=== PATIENT | female | born 2000 | race Caucasian/White ===

== ENCOUNTER 2022-05-04 09:36 | Emergency (ER) | payer OTHER ==
--- NOTE | 2022-05-04 10:33 | ERPHSYRPT ---
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 I got some pains in my chest in the middle and this morning it got worse and I got some weird sensation down my left arm and left breast. I also have had white discharge as well and I think I have a yeast infection." Triage Nursing Assessment: Pt presents to ER with complaints of mid to left sided chest pains since last night and worsening this morning, states tingling sensation down left arm. Admits to having a lot of stressors lately. Pt states has had some shortness of breath. Respirations are easy at this time. Skin is pink, warm, and dry. Pt rates chest pain 6/10 scale, states pains are heavy and intermittently sharp. Pt states she has nausea but denies vomiting or diarrhea. Pt complains of white discharge and believes she has a yeast infection as well. Physician History: Patient a 21-year-old female presents emergency department for evaluation of chest pain. Patient experienced symptoms yesterday. 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 Grandmother reportedly has advanced dementia. Patient interactions with grandmother is physical in terms of lifting and transferring. Patient's left- sided chest pain is reproducible with movement and palpation. Pain improved with rest. No associated nausea vomiting or diaphoresis. No diarrhea. No rash. No history of cardiovascular disease. BMI 60. Symptoms are mild to moderate in intensity. Patient voices no other complaints or concerns at this time. Portions of this note were created with voice recognition technology. There may be grammatical, spelling, punctuation or sound alike errors Timing/Duration: yesterday Activities at Onset: other (Patient lives in transfers her grandmother who has advanced dementia) Quality: aching Location: other (Left chest) Chest Pain Radiation: no radiation Severity of Pain-Max: moderate Severity of Pain-Current: mild Modifying Factors: Improves With: other (Palpation to chest reproduces symptoms.) Associated Symptoms: denies symptoms Prior Chest Pain/Cardiac Workup: no prior chest pain Nitro Today/Relief: no nitro taken today Aspirin Treatment Today: no aspirin today Allergies/Adverse Reactions: calamine Allergy (Mild, Verified 05/04/22 09:50) Rash famotidine Adverse Reaction (Verified 05/04/22 09:50) Home Medications: Sertraline HCl 50 mg [Zoloft 50 mg Tablet] 150 mg PO DAILY 05/04/22 [History] Hx Tetanus, Diphtheria Vaccination/Date Given: No Hx Influenza Vaccination/Date Given: No Hx Pneumococcal Vaccination/Date Given: No Immunizations Up to Date: Yes Travel Risk - International Travel Have you traveled outside of the country in past 3 weeks: No - Coronavirus Screening Are you exhibiting any of the following symptoms?: No Close contact with a COVID-19 positive Pt in past 14-21 Days: No - Vaccine Status Have you recieved a Covid-19 vaccination: No - Review of Systems Constitutional: No Symptoms, No Fever, No Chills Eyes: No Symptoms Ears, Nose, & Throat: No Symptoms Respiratory: No Symptoms, No Cough, No Dyspnea Cardiac: No Symptoms, No Chest Pain, No Edema, No Syncope Abdominal/Gastrointestinal: No Symptoms, No Abdominal Pain, No Nausea, No Vomiting, No Diarrhea Genitourinary Symptoms: No Symptoms, No Dysuria Musculoskeletal: No Symptoms, No Back Pain, No Neck Pain Skin: No Symptoms, No Rash Neurological: No Symptoms, No Dizziness, No Focal Weakness, No Sensory Changes Psychological: No Symptoms Endocrine: No Symptoms Hematologic/Lymphatic: No Symptoms Immunological/Allergic: No Symptoms All Other Systems: Reviewed and Negative - Past Medical History Pertinent Past Medical History: Yes GI Medical History: Irritable Bowel Psycho-Social History: Anxiety, Depression Female Reproductive Disorders: Other Other Medical History: PCOS - Past Surgical History Past Surgical History: Yes Other Surgical History: wisdom teeth - Social History Smoking Status: Current every day smoker Exposure to second hand smoke: No Drug Use: none Patient Lives Alone: No - Female History Hx Last Menstrual Period: unknown on control Hx Now: No - Nursing Vital Signs Nursing Vital Signs: Initial Vital Signs Pulse Rate 106 H 05/04/22 09:37 Respiratory Rate 22 05/04/22 09:37 Blood Pressure 145/92 05/04/22 09:37 O2 Sat by Pulse Oximetry 98 05/04/22 09:37 Pain Scale Pain Intensity 4 - Physical Exam General Appearance: no apparent distress, alert, obese Eye Exam: PERRL/EOMI, eyes nml inspection Ears, Nose, Throat Exam: normal ENT inspection, moist mucous membranes Neck Exam: normal inspection, non-tender, supple, full range of motion Respiratory Exam: normal breath sounds, lungs clear, other (Chest wall tenderness. Palpation to anterior chest wall reproduces symptoms. Tenderness more so on the left than the right.), No respiratory distress Cardiovascular Exam: regular rate/rhythm, normal heart sounds Gastrointestinal/Abdomen Exam: soft, No tenderness, No mass Back Exam: normal inspection, No CVA tenderness, No vertebral tenderness Extremity Exam: normal inspection, normal range of motion Neurologic Exam: alert, oriented x 3, cooperative, normal mood/affect, sensation nml, No motor deficits Skin Exam: normal color, warm, dry Lymphatic Exam: No adenopathy SpO2 Interpretation: normal SpO2: 98 O2 Delivery: Room Air - Course Nursing assessment & vital signs reviewed: Yes EKG Interpreted by Me: RATE ([id number]), Sinus Tach, NORMAL AXIS, NORMAL INTERVALS - Radiology Exams Chest X-ray Interpretation: Teleradiologist Report (Normal heart lungs and bony thorax) Ordered Tests: Active Orders 24 hr Category Date Time Status [employer] STAT Care 05/04/22 10:14 Active EKG-ER Only STAT Care 05/04/22 10:13 Active IV Insertion STAT Care 05/04/22 11:42 Active Pulse Oximetry (ED) STAT Care 05/04/22 10:13 Active CHEST 1 VIEW (PORTABLE) Stat Exams 05/04/22 11:28 Completed CBC W DIFF Stat Lab 05/04/22 10:10 Completed CMP Stat Lab 05/04/22 10:10 Completed D-DIMER QUANTITATIVE Stat Lab 05/04/22 10:10 Completed NT PRO BNP Stat Lab 05/04/22 10:10 Completed TROPONIN Q4H Lab 05/04/22 10:10 Completed TROPONIN Q4H Lab 05/04/22 11:40 Received TROPONIN Q4H Lab 05/04/22 18:15 Ordered Lab/Rad Data: Laboratory Result Diagrams 05/04/22 10:10 05/04/22 10:10 Laboratory Results 05/04/22 05/04/22 05/04/22 Range/Units 10:10 10:10 10:10 WBC (4.0-10.5) x10^3/uL RBC (4.1-5.4) x10^6/uL Hgb (12.0-16.0) g/dL Hct (35-47) % MCV (78-100) fL MCH (26-32) pg MCHC (32-36) g/dL RDW (11.5-14.0) % Plt Count (150-450) x10^3/uL MPV (7.5-11.0) fL Gran % (36.0-66.0) % Immature Gran % (Auto) (0.00-0.4) % Nucleat RBC Rel Count (0.00-0.1) % Eos # (Auto) (0-0.5) x10^3/uL Immature Gran # (Auto) (0.00-0.03) x10^3u/L Absolute Lymphs (auto) (1.0-4.6) x10^3/uL Absolute Monos (auto) (0.0-1.3) x10^3/uL Absolute Nucleated RBC (0.00-0.01) x10^3u/L Lymphocytes % (24.0-44.0) % Monocytes % (0.0-12.0) % Eosinophils % (0.00-5.0) % Basophils % (0.0-0.4) % Absolute Granulocytes (1.4-6.9) x10^3/uL Basophils # (0-0.4) x10^3/uL D-Dimer 0.22 (0.0-0.50) mg/L Sodium 139 (137-145) mmol/L Potassium 4.2 (3.5-5.1) mmol/L Chloride 109 H (98-107) mmol/L Carbon Dioxide 21 L (22-30) mmol/L Anion Gap 13.3 (5-15) MEQ/L BUN 13 (7-17) mg/dL Creatinine 0.50 L (0.52-1.04) mg/dL Estimated GFR > 60.0 ML/MIN Glucose 131 H (74-106) mg/dL Calcium 9.0 (8.4-10.2) mg/dL Total Bilirubin 0.40 (0.2-1.3) mg/dL AST 21 (14-36) U/L ALT 24 (0-35) U/L Alkaline Phosphatase 86 (38-126) U/L Troponin I < 0.012 (0.000-0.034) ng/mL NT-Pro-B Natriuret Pep 14.0 (0-450) pg/mL Serum Total Protein 7.9 (6.3-8.2) g/dL Albumin 4.1 (3.5-5.0) g/dL 05/04/22 Range/Units 10:10 WBC 12.5 H (4.0-10.5) x10^3/uL RBC 4.94 (4.1-5.4) x10^6/uL Hgb 13.4 (12.0-16.0) g/dL Hct 42.4 (35-47) % MCV 85.8 (78-100) fL MCH 27.1 (26-32) pg MCHC 31.6 L (32-36) g/dL RDW 13.5 (11.5-14.0) % Plt Count 362 (150-450) x10^3/uL MPV 10.8 (7.5-11.0) fL Gran % 60.2 (36.0-66.0) % Immature Gran % (Auto) 0.3 (0.00-0.4) % Nucleat RBC Rel Count 0.0 (0.00-0.1) % Eos # (Auto) 0.40 (0-0.5) x10^3/uL Immature Gran # (Auto) 0.04 H (0.00-0.03) x10^3u/L Absolute Lymphs (auto) 3.89 (1.0-4.6) x10^3/uL Absolute Monos (auto) 0.58 (0.0-1.3) x10^3/uL Absolute Nucleated RBC 0.00 (0.00-0.01) x10^3u/L Lymphocytes % 31.2 (24.0-44.0) % Monocytes % 4.7 (0.0-12.0) % Eosinophils % 3.2 (0.00-5.0) % Basophils % 0.4 (0.0-0.4) % Absolute Granulocytes 7.51 H (1.4-6.9) x10^3/uL Basophils # 0.05 (0-0.4) x10^3/uL D-Dimer (0.0-0.50) mg/L Sodium (137-145) mmol/L Potassium (3.5-5.1) mmol/L Chloride (98-107) mmol/L Carbon Dioxide (22-30) mmol/L Anion Gap (5-15) MEQ/L BUN (7-17) mg/dL Creatinine (0.52-1.04) mg/dL Estimated GFR ML/MIN Glucose (74-106) mg/dL Calcium (8.4-10.2) mg/dL Total Bilirubin (0.2-1.3) mg/dL AST (14-36) U/L ALT (0-35) U/L Alkaline Phosphatase (38-126) U/L Troponin I (0.000-0.034) ng/mL NT-Pro-B Natriuret Pep (0-450) pg/mL Serum Total Protein (6.3-8.2) g/dL Albumin (3.5-5.0) g/dL - Progress Progress: improved Air Movement: good Progress Note: Heart score is 1 which indicates a risk of major adverse coronary event of 0.9- 1.7. This score is low and suggests patient can be discharged home. 05/04/22 12:01 Patient reassessed. She is asymptomatic. No chest pain. EKG normal sinus rhythm. Troponin negative x2. Chest x-ray negative. Heart score 1. No indication for further work-up at this time. Will discharge home. Patient agrees to follow-up with primary care doctor within 48 hours for evaluation. Portions of this note were created with voice recognition technology. There may be grammatical, spelling, punctuation or sound alike errors 05/04/22 12:09 Blood Culture(s) Obtained: No Antibiotics given: No Counseled pt/family regarding: lab results, diagnosis, need for follow-up, rad results - Departure Departure Disposition: Home Clinical Impression: Chest wall pain Condition: Stable Critical Care Time: No Referrals: MARCIA PINA MD [Primary Care Provider] - Follow up/PCP as directed Additional Instructions: Discharge/Care Plan SHAGGY HAWLEY was seen on 05/04/22 in the Emergency Room. The patient was counseled regarding Diagnosis,Lab results, Imaging studies, need for follow up and when to return to the Emergency Room. Prescriptions given: Discharge Note I have spoken with the patient and/or caregivers. I have explained the patient's condition, diagnosis and treatment plan based on the information available to me at this time. I have answered the patient's and/or caregiver's questions and addressed any concerns. The patient and/or caregivers have as good understanding of the patient's diagnosis, condition and treatment plan as can be expected at this point. The vital signs have been stable. The patient's condition is stable and appropriate for discharge from the emergency department. The patient will pursue further outpatient evaluation with the primary care physician or other designated or consulting physician as outlined in the discharge instructions. The patient and/or caregivers are agreeable to this plan of care and follow-up instructions have been explained in detail. The patient and/or caregivers have received these instruction. The patient/and or caregivers are aware that any significant change in condition or worsening of symptoms should prompt an immediate return to this or the closest emergency department or call 911.
[2022-05-04 10:35] LABS: Absolute Neutrophil Ct (ANC) 7.51 x10^3/uL (1.4-6.9); Basophil (Absolute #) 0.05 x10^3/uL (0-0.4); Eosinophil % 3.2 % (0.00-5.0); Hematocrit 42.4 % (35-47); Hemoglobin 13.4 g/dL (12.0-16.0); Lymphocyte (Absolute #) 3.89 x10^3/uL (1.0-4.6); Lymphocytes % 31.2 % (24.0-44.0); Mean Cell Volume 85.8 fL (78-100); Mean Corpuscular Hemoglobin 27.1 pg (26-32); Mean Corpuscular Hgb Concent. 31.6 g/dL (32-36); Mean Platelet Volume 10.8 fL (7.5-11.0); Monocyte (Absolute #) 0.58 x10^3/uL (0.0-1.3); Monocytes % 4.7 % (0.0-12.0); Neutrophil % 60.2 % (36.0-66.0); Platelet Count 362 x10^3/uL (150-450); Red Blood Count 4.94 x10^6/uL (4.1-5.4); Red Cell Distribution Width 13.5 % (11.5-14.0); White Blood Count 12.5 x10^3/uL (4.0-10.5)
[2022-05-04 10:51] LABS: ALBUMIN 4.1 g/dL (3.5-5.0); ALKALINE PHOSPHATASE 86 U/L (38-126); ANION GAP 13.3 MEQ/L (5-15); BLOOD UREA NITROGEN 13 mg/dL (7-17); CHLORIDE 109 mmol/L (98-107); Carbon Dioxide 21 mmol/L (22-30); EST GLOMERULAR FILTRATION RATE > 60.0 ML/MIN; Glucose 131 mg/dL (74-106); Potassium 4.2 mmol/L (3.5-5.1); SGOT/AST 21 U/L (14-36); SGPT/ALT 24 U/L (0-35); SODIUM 139 mmol/L (137-145); Total Protein 7.9 g/dL (6.3-8.2)
--- NOTE | 2022-05-04 12:02 | XRAY ---
Indication: Chest pain. Comparison: None Portable chest demonstrates normal heart, lungs, and bony thorax.
[2022-05-04 12:57] VITALS: BP 121/76; PULSE 88; O2SAT 99
== END 2022-05-04 13:01 | disposition home or self-care (01) ==
LOC: ED 09:36
DX: R07.89 Other chest pain (principal); Z63.6 Dependent relative needing care at home; Z72.0 Tobacco use; Z79.899 Other long term (current) drug therapy; Z28.310 Unvaccinated for COVID-19
CPT/HCPCS: 36000; 36415; 71045; 80053; 83880; 84484; 85025; 85379; 93005; 93041; 94760; 99284

== ENCOUNTER 2022-11-01 21:27 | Emergency (ER) | payer OTHER ==
--- NOTE | 2022-11-01 21:48 | ERPHSYRPT ---
- History of Present Illness Time Seen by Provider: 11/01/22 21:48 Historian: patient Exam Limitations: no limitations Physician History: 22-year-old female presents emergency room with left lower quadrant abdominal pain that started this morning and bleeding from her bellybutton. Patient describes the pain as a cramping pain is worse with coughing breathing or movement and not associated with food. She denied fever, chills, nausea, vomiting, chest pain, dysuria, hematuria, shortness of breath or swelling. Also denies any vaginal discharge or bleeding and is not sexually active at this time. She does have a history of PCOS as well as a history of chronic constip ation. Timing/Duration: today Activities at Onset: rest Quality: cramping Abdominal Pain Onset Location: LUQ, LLQ Pain Radiation: no radiation Severity of Pain-Max: severe Severity of Pain-Current: moderate Modifying Factors: Improves With: nothing. Worsens With: movement Associated Symptoms: denies symptoms Previous symptoms: no prior history Allergies/Adverse Reactions: calamine Allergy (Mild, Verified 11/01/22 21:58) Rash famotidine Adverse Reaction (Verified 11/01/22 21:58) Home Medications: Etonogestrel [Nexplanon] 68 mg CLARIFY 11/01/22 [History] Hx Tetanus, Diphtheria Vaccination/Date Given: No Hx Influenza Vaccination/Date Given: No Hx Pneumococcal Vaccination/Date Given: No Travel Risk - Vaccine Status Have you recieved a Covid-19 vaccination: No - Review of Systems Constitutional: No Symptoms Eyes: No Symptoms Ears, Nose, & Throat: No Symptoms Respiratory: No Symptoms Cardiac: No Symptoms Abdominal/Gastrointestinal: Abdominal Pain, Constipation, No Nausea, No Vomiting, No Diarrhea, No Hematemesis, No Hematochezia, No Melena Genitourinary Symptoms: No Symptoms Musculoskeletal: No Symptoms Skin: No Symptoms - Past Medical History Pertinent Past Medical History: Yes GI Medical History: Irritable Bowel Psycho-Social History: Anxiety, Depression Female Reproductive Disorders: Other Other Medical History: PCOS - Past Surgical History Past Surgical History: Yes Other Surgical History: wisdom teeth - Social History Smoking Status: Current every day smoker Exposure to second hand smoke: No Drug Use: none Patient Lives Alone: No - Nursing Vital Signs Nursing Vital Signs: Initial Vital Signs Temperature 98.9 F 11/01/22 21:43 Pulse Rate 107 H 11/01/22 21:43 Respiratory Rate 24 11/01/22 21:43 Blood Pressure 132/99 11/01/22 21:43 O2 Sat by Pulse Oximetry 97 11/01/22 21:43 Pain Scale Pain Intensity 8 - Physical Exam General Appearance: no apparent distress, obese Eye Exam: eyes nml inspection Ears, Nose, Throat Exam: normal ENT inspection Respiratory Exam: airway intact, No respiratory distress Cardiovascular Exam: capillary refill <2 sec, No edema Gastrointestinal/Abdomen Exam: soft, normal bowel sounds, tenderness (LUQ, LLQ), No guarding, No rebound Back Exam: normal inspection, normal range of motion Extremity Exam: normal inspection, No swelling, No tenderness Neurologic Exam: alert, oriented x 3, cooperative Skin Exam: normal color, warm, dry Lymphatic Exam: No adenopathy SpO2 Interpretation: normal SpO2: 97 O2 Delivery: Room Air - Course Nursing assessment & vital signs reviewed: Yes - CT Exams Abdomen/Pelvis CT Interpretation: Tele-radiologist Report, Other (no acute abdominal pathology, enlarged liver, L5-S1 diffuse disc bulge) Ordered Tests: Active Orders 24 hr Category Date Time Status IV Insertion STAT Care 11/01/22 22:20 Active ABDOMEN AND PELVIS W CONTRAST [CT] Stat Exams 11/01/22 22:20 Completed CBC W DIFF Stat Lab 11/01/22 22:42 Completed CMP Stat Lab 11/01/22 22:42 Completed HCG QUALITATIVE, URINE Stat Lab 11/01/22 23:31 Completed LIPASE Stat Lab 11/01/22 22:42 Completed Lactic Acid Stat Lab 11/01/22 22:55 Completed MONO SCREEN Stat Lab 11/02/22 00:00 Completed UA W/RFX UR CULTURE Stat Lab 11/01/22 22:11 Completed Medication Summary Discontinued Medications Generic Name Dose Route Start Last Admin Trade Name Freq PRN Reason Stop Dose Admin Sodium Chloride 1,000 mls @ 999 mls/hr 11/01/22 22:20 11/01/22 23:53 Sodium Chloride 0.9% 1000 Ml IV 11/01/22 23:20 Infused .Q1H1M STA Infusion Sodium Chloride Confirm 11/01/22 22:33 Sodium Chloride 0.9% 1000 Ml Administered 11/01/22 22:34 Dose 1,000 mls @ ud .ROUTE .STK-MED ONE Ketorolac Tromethamine 30 mg 11/01/22 22:20 11/01/22 22:36 Ketorolac Tromethamine 30 Mg/Ml Inj IV 11/01/22 22:21 30 mg STAT ONE Administration Ketorolac Tromethamine Confirm 11/01/22 22:32 Ketorolac Tromethamine 30 Mg/Ml Inj Administered 11/01/22 22:33 Dose 30 mg .ROUTE .STK-MED ONE Ketorolac Tromethamine 30 mg 11/02/22 00:07 11/02/22 00:09 Ketorolac Tromethamine 30 Mg/Ml Inj IV 11/02/22 00:08 30 mg STAT ONE Administration Ketorolac Tromethamine Confirm 11/02/22 00:08 Ketorolac Tromethamine 30 Mg/Ml Inj Administered 11/02/22 00:09 Dose 30 mg .ROUTE .K-[facility] ONE Lab/Rad Data: Laboratory Result Diagrams 11/01/22 22:42 11/01/22 22:42 Laboratory Results 11/02/22 11/01/22 11/01/22 Range/Units 00:00 23:31 22:55 WBC (4.0-10.5) x10^3/uL RBC (4.1-5.4) x10^6/uL Hgb (12.0-16.0) g/dL Hct (35-47) % MCV (78-100) fL MCH (26-32) pg MCHC (32-36) g/dL RDW (11.5-14.0) % Plt Count (150-450) x10^3/uL MPV (7.5-11.0) fL Gran % (36.0-66.0) % Immature Gran % (Auto) (0.00-0.4) % Nucleat RBC Rel Count (0.00-0.1) % Eos # (Auto) (0-0.5) x10^3/uL Immature Gran # (Auto) (0.00-0.03) x10^3u/L Absolute Lymphs (auto) (1.0-4.6) x10^3/uL Absolute Monos (auto) (0.0-1.3) x10^3/uL Absolute Nucleated RBC (0.00-0.01) x10^3u/L Lymphocytes % (24.0-44.0) % Monocytes % (0.0-12.0) % Eosinophils % (0.00-5.0) % Basophils % (0.0-0.4) % Absolute Granulocytes (1.4-6.9) x10^3/uL Basophils # (0-0.4) x10^3/uL Sodium (137-145) mmol/L Potassium (3.5-5.1) mmol/L Chloride (98-107) mmol/L Carbon Dioxide (22-30) mmol/L Anion Gap (5-15) MEQ/L BUN (7-17) mg/dL Creatinine (0.52-1.04) mg/dL Estimated GFR ML/MIN Glucose (74-106) mg/dL Lactic Acid 1.4 (0.4-2.0) Calcium (8.4-10.2) mg/dL Total Bilirubin (0.2-1.3) mg/dL AST (14-36) U/L ALT (0-35) U/L Alkaline Phosphatase (38-126) U/L Serum Total Protein (6.3-8.2) g/dL Albumin (3.5-5.0) g/dL Lipase (23-300) U/L Urine Color (Yellow) Urine Appearance (Clear) Urine pH (4.6-8.0) Ur Specific [place] (1.005-1.030) Urine Protein (Negative) Urine Glucose (UA) (Negative) mg/dL Urine Ketones (Negative) Urine Blood (Negative) Urine Nitrite (Negative) Urine Bilirubin (Negative) Urine Urobilinogen (0.2) mg/dL Ur Leukocyte Esterase (Negative) U Hyaline Cast (Auto) (0-2) /LPF Urine Microscopic RBC (0-5) /HPF Urine Microscopic WBC (0-5) /HPF Ur Epithelial Cells (None Seen) /HPF Urine Bacteria (None Seen) /HPF Urine Culture Reflexed (NO) Urine HCG, Qual NEGATIVE (NEGATIVE) Monoscreen NEGATIVE (NEGATIVE) 11/01/22 11/01/22 11/01/22 Range/Units 22:42 22:42 22:11 WBC 15.3 H (4.0-10.5) x10^3/uL RBC 4.65 (4.1-5.4) x10^6/uL Hgb 12.6 (12.0-16.0) g/dL Hct 39.1 (35-47) % MCV 84.1 (78-100) fL MCH 27.1 (26-32) pg MCHC 32.2 (32-36) g/dL RDW 13.6 (11.5-14.0) % Plt Count 366 (150-450) x10^3/uL MPV 9.9 (7.5-11.0) fL Gran % 61.3 (36.0-66.0) % Immature Gran % (Auto) 0.3 (0.00-0.4) % Nucleat RBC Rel Count 0.0 (0.00-0.1) % Eos # (Auto) 0.52 H (0-0.5) x10^3/uL Immature Gran # (Auto) 0.05 H (0.00-0.03) x10^3u/L Absolute Lymphs (auto) 4.70 H (1.0-4.6) x10^3/uL Absolute Monos (auto) 0.61 (0.0-1.3) x10^3/uL Absolute Nucleated RBC 0.00 (0.00-0.01) x10^3u/L Lymphocytes % 30.7 (24.0-44.0) % Monocytes % 4.0 (0.0-12.0) % Eosinophils % 3.4 (0.00-5.0) % Basophils % 0.3 (0.0-0.4) % Absolute Granulocytes 9.38 H (1.4-6.9) x10^3/uL Basophils # 0.05 (0-0.4) x10^3/uL Sodium 140 (137-145) mmol/L Potassium 3.6 (3.5-5.1) mmol/L Chloride 108 H (98-107) mmol/L Carbon Dioxide 24 (22-30) mmol/L Anion Gap 12.0 (5-15) MEQ/L BUN 11 (7-17) mg/dL Creatinine 0.68 (0.52-1.04) mg/dL Estimated GFR > 60.0 ML/MIN Glucose 143 H (74-106) mg/dL Lactic Acid (0.4-2.0) Calcium 8.5 (8.4-10.2) mg/dL Total Bilirubin 0.20 (0.2-1.3) mg/dL AST 26 (14-36) U/L ALT 28 (0-35) U/L Alkaline Phosphatase 83 (38-126) U/L Serum Total Protein 7.3 (6.3-8.2) g/dL Albumin 3.6 (3.5-5.0) g/dL Lipase 84 (23-300) U/L Urine Color Yellow (Yellow) Urine Appearance Clear (Clear) Urine pH 7.0 (4.6-8.0) Ur Specific [place] 1.025 (1.005-1.030) Urine Protein Negative (Negative) Urine Glucose (UA) Negative (Negative) mg/dL Urine Ketones Negative (Negative) Urine Blood Negative (Negative) Urine Nitrite Negative (Negative) Urine Bilirubin Negative (Negative) Urine Urobilinogen 1.0 A (0.2) mg/dL Ur Leukocyte Esterase Negative (Negative) U Hyaline Cast (Auto) NONE SEEN (0-2) /LPF Urine Microscopic RBC 0-2 (0-5) /HPF Urine Microscopic WBC 3-5 (0-5) /HPF Ur Epithelial Cells Few (None Seen) /HPF Urine Bacteria None Seen (None Seen) /HPF Urine Culture Reflexed NO (NO) Urine HCG, Qual (NEGATIVE) Monoscreen (NEGATIVE) - Progress Progress: pain not gone completely Progress Note: WBC 15.3 w/ lymphocyte predominance. CMP wnl except for glucose of 143. UA neg. CT abd/pelvis showed no acute abdominal pathology, an enlarged liver and L5-S1 incidental finding of a diffuse bulging disc. Monospot neg. I advised patient to f/u w/ PCP for her back. I recommended weight loss and physical therapy. Counseled pt/family regarding: lab results, diagnosis, need for follow-up, rad results Medical Desision Making - Diagnostic Testing Diagnostic test were ordered, analyzed, and reviewed by me: Yes Radiological Interpretation: Interpreted by me, Reviewed by me, Teleradiologist Report - Risk of complications Low Risk: Low risk of morbidity from additional dx testing or treatment - Departure Departure Disposition: Home Clinical Impression: Leukocytosis, Hyperglycemia, Herniation of intervertebral disc between L5 and S1, Abdominal pain Condition: Good Critical Care Time: No Referrals: BIJU SMITH [Primary Care Provider] - Follow up/PCP as directed Instructions: Herniated Disc (DC), Severe Abdominal Pain, Adult (DC)
[2022-11-01] MEDS ORDERED: TORAdol 30 mg Injection IV ONE (22:20)
[2022-11-01] MEDS ORDERED: Sodium Chloride 0.9% 1000 ML 1,000 ML IV STA (22:20)
[2022-11-01 22:32] LABS: Appearance Clear (Clear); Bacteria None Seen /HPF (None Seen); Bilirubin Negative (Negative); Blood Negative (Negative); Epithelial Cells Few /HPF (None Seen); Glucose, Urine Negative (Negative); Hyaline Casts NONE SEEN /LPF (0-2); Ketones Negative (Negative); Leukocyte Esterase Negative (Negative); Nitrite Negative (Negative); Protein,Urine Dip Negative (Negative); RBC 0-2 /HPF (0-5); Specific Gravity 1.025 (1.005-1.030)
[2022-11-01] MEDS ORDERED: TORAdol 30 mg Injection ONE (22:32)
[2022-11-01 22:33] LABS: ADD URINE CULTURE? NO (NO)
[2022-11-01] MEDS ORDERED: Sodium Chloride 0.9% 1000 ML 1,000 ML ONE (22:33)
[2022-11-01 22:45] LABS: Absolute Neutrophil Ct (ANC) 9.38 x10^3/uL (1.4-6.9); BASOPHIL % 0.3 % (0.0-0.4); Basophil (Absolute #) 0.05 x10^3/uL (0-0.4); Eosinophil % 3.4 % (0.00-5.0); Eosinophil (Absolute #) 0.52 x10^3/uL (0-0.5); Hematocrit 39.1 % (35-47); Hemoglobin 12.6 g/dL (12.0-16.0); IMMATURE GRAN # 0.05 x10^3u/L (0.00-0.03); IMMATURE GRAN % 0.3 % (0.00-0.4); Lymphocytes % 30.7 % (24.0-44.0); Mean Cell Volume 84.1 fL (78-100); Mean Corpuscular Hemoglobin 27.1 pg (26-32); Mean Corpuscular Hgb Concent. 32.2 g/dL (32-36); Mean Platelet Volume 9.9 fL (7.5-11.0); Monocyte (Absolute #) 0.61 x10^3/uL (0.0-1.3); Neutrophil % 61.3 % (36.0-66.0); Platelet Count 366 x10^3/uL (150-450); Red Blood Count 4.65 x10^6/uL (4.1-5.4); Red Cell Distribution Width 13.6 % (11.5-14.0); White Blood Count 15.3 x10^3/uL (4.0-10.5)
[2022-11-01 23:08] LABS: ALBUMIN 3.6 g/dL (3.5-5.0); ALKALINE PHOSPHATASE 83 U/L (38-126); BLOOD UREA NITROGEN 11 mg/dL (7-17); CHLORIDE 108 mmol/L (98-107); Calcium 8.5 mg/dL (8.4-10.2); Carbon Dioxide 24 mmol/L (22-30); Creatinine 1 0.68 mg/dL (0.52-1.04); EST GLOMERULAR FILTRATION RATE > 60.0 ML/MIN; Glucose 143 mg/dL (74-106); LIPASE 84 U/L (23-300); Potassium 3.6 mmol/L (3.5-5.1); SGOT/AST 26 U/L (14-36); SGPT/ALT 28 U/L (0-35); SODIUM 140 mmol/L (137-145); Total Protein 7.3 g/dL (6.3-8.2)
[2022-11-01 23:31] LABS: HCG URINE TEST NEGATIVE (NEGATIVE)
[2022-11-02 00:06] VITALS: PULSE 90
[2022-11-02] MEDS ORDERED: TORAdol 30 mg Injection IV ONE (00:07)
[2022-11-02] MEDS ORDERED: TORAdol 30 mg Injection ONE (00:08)
--- NOTE | 2022-11-02 00:37 | XRAY ---
CLINICAL HISTORY:Abdominal pain. Left lower quadrant pain for 1 day. H/O ovarian cysts; COMPARISON:None; TECHNIQUES:Multiple axial CT images were obtained through the abdomen and pelvis with coronal and sagittal reformat images with IV contrast material. Images were reviewed in parenchymal and bone window settings. 80 ml Isovue; FINDINGS: The visualized portions of the lungs are normal in appearance. The visualized portion of the heart is normal in size without pericardial effusion. The abdominal aorta demonstrates no evidence of focal aneurysmal dilatation or dissection. The liver is increased in size, measuring 19 cm. Liver is of normal in contour. The parenchymal density of the liver is diffusely decreased, suggestive of steatosis. No focal parenchymal lesions and there is no evidence of parenchymal infiltration. No intrahepatic ductal dilatation is seen. There is no evidence of hepatic and portal veins disorders. The gallbladder is unremarkable. The common bile duct is normal in appearance. The spleen and pancreas are normal contour and attenuation characteristics without focal parenchymal lesions. The adrenals are normal in size and no mass lesion is detected. Bilateral kidneys are normal in size, shape and configuration. There is no evidence of renal mass. No hydronephrosis, josy-nephric stranding or radio-opaque calculi are visualized. The ureters are normal in course and caliber, without any filling defects. The urinary bladder is normal. The uterus is normal. No adnexal pathology. The colon and small bowel loops are normal in appearance and without wall thickening or inflammatory change. There is no sign of appendicitis. No intraperitoneal free fluid or air is visualized. No pathologic lymphadenopathy is seen. There are no osseous abnormalities. There is edema of the posterior subcutaneous fat tissues. There is decrease in height of the L5-S1 intervertebral disc with diffuse bulging. The included bones are unremarkable. IMPRESSION: No intraabdominal acute pathology. Hepatomegaly with hepatosteatosis. Edema of the posterior subcutaneous fat tissues. Decrease in height of the L5-S1 intervertebral disc with diffuse bulging. Further evaluation with MR is recommended. Electronically Signed by: Lee Ann Mathews MD. ( 11/01/2022 23:32:08 NURSE ORTHOPAEDIC)
[2022-11-02 00:59] VITALS: O2SAT 97
[2022-11-02 01:24] VITALS: BP 128/92
== END 2022-11-02 01:33 | disposition home or self-care (01) ==
LOC: ED 21:27
DX: D72.829 Elevated white blood cell count, unspecified (principal); R73.9 Hyperglycemia, unspecified; M51.27 Other intervertebral disc displacement, lumbosacral region; R10.32 Left lower quadrant pain; R58 Hemorrhage, not elsewhere classified; Z28.310 Unvaccinated for COVID-19; Z72.0 Tobacco use
CPT/HCPCS: 36000; 36415; 74177; 80053; 81001; 81025; 83605; 83690; 85025; 86308; 96360; 96374; 96376; 99284; J1885

== ENCOUNTER 2023-04-01 21:34 | Emergency (ER) | payer OTHER ==
[2023-04-01 22:09] VITALS: RESP 18; TEMP 97.7
[2023-04-01 22:20] LABS: Appearance Clear (Clear); Bacteria None Seen /HPF (None Seen); Bilirubin Negative (Negative); Blood Moderate (Negative); Epithelial Cells Rare /HPF (None Seen); Glucose, Urine Negative (Negative); Ketones Trace (Negative); Leukocyte Esterase Negative (Negative); Nitrite Negative (Negative); Ph 6.5 (4.6-8.0); Protein,Urine Dip 30 (Negative); RBC 0-2 /HPF (0-5); Specific Gravity >=1.030 (1.005-1.030)
[2023-04-01 22:22] LABS: ADD URINE CULTURE? YES (NO)
--- NOTE | 2023-04-01 22:41 | ERPHSYRPT ---
- History of Present Illness Historian: patient Exam Limitations: no limitations Patient Subjective Stated Complaint: pt states she has abd pain, back pain, and blood in urine Triage Nursing Assessment: pt ambulated into the er; pt is axo x4; c/o abd pain; pt states pain to back; pt has blood tinge discharge when wiping; urine was jamal with particles in it; abd is obese, tender, soft; active bowel sounds in all quads; pt c/o N/V/D; skin PDW; no respiratory distress present; hypertensive Physician History: Patient is a 22-year-old obese white female with chief complaint of hematuria for 2 days. Patient has left costovertebral angle pain and left lower quadrant pain which she rates 9 out of 10. Nothing makes the pain better or worse. She denies dysuria, fever, and . Patient was seen at the [facility] yesterday and was told that she had a little bit of blood in her urine. She has had some nausea without vomiting. Patient denies cough, coryza, chest pain, diarrhea, melena, hematochezia. Timing/Duration: day(s) (2 days) Activities at Onset: rest Quality: stabbing Abdominal Pain Onset Location: LLQ Pain Radiation: flank Severity of Pain-Max: severe Severity of Pain-Current: severe Modifying Factors: Improves With: nothing Associated Symptoms: denies symptoms, nausea Previous symptoms: no prior history Allergies/Adverse Reactions: calamine Allergy (Mild, Verified 04/01/23 21:50) Rash famotidine Adverse Reaction (Verified 04/01/23 21:50) Home Medications: Etonogestrel [Nexplanon] 68 mg CLARIFY 11/01/22 [History] Hx Tetanus, Diphtheria Vaccination/Date Given: No Hx Influenza Vaccination/Date Given: No Hx Pneumococcal Vaccination/Date Given: No Travel Risk - International Travel Have you traveled outside of the country in past 3 weeks: No - Coronavirus Screening Are you exhibiting any of the following symptoms?: No Close contact with a COVID-19 positive Pt in past 14-21 Days: No - Vaccine Status Have you recieved a Covid-19 vaccination: No - Review of Systems Constitutional: No Symptoms Eyes: No Symptoms Ears, Nose, & Throat: No Symptoms Respiratory: No Symptoms Cardiac: No Symptoms Abdominal/Gastrointestinal: No Symptoms, Abdominal Pain Genitourinary Symptoms: No Symptoms, Hematuria Musculoskeletal: No Symptoms Skin: No Symptoms Neurological: No Symptoms Psychological: No Symptoms Endocrine: No Symptoms Hematologic/Lymphatic: No Symptoms Immunological/Allergic: No Symptoms - Past Medical History Pertinent Past Medical History: Yes Neurological History: No Pertinent History ENT History: No Pertinent History Cardiac History: No Pertinent History Respiratory History: No Pertinent History Endocrine Medical History: No Pertinent History Musculoskeletal History: No Pertinent History GI Medical History: Irritable Bowel History: No Pertinent History Psycho-Social History: Anxiety, Depression Female Reproductive Disorders: Other Other Medical History: PCOS, HS - Past Surgical History Past Surgical History: Yes Other Surgical History: wisdom teeth - Social History Smoking Status: Current every day smoker Exposure to second hand smoke: No Drug Use: marijuana Patient Lives Alone: No - Female History Hx Now: No - Nursing Vital Signs Nursing Vital Signs: Initial Vital Signs Temperature 97.7 F 04/01/23 21:56 Pulse Rate 105 H 04/01/23 21:56 Respiratory Rate 18 04/01/23 21:56 Blood Pressure 171/99 04/01/23 21:56 O2 Sat by Pulse Oximetry 97 04/01/23 21:56 Pain Scale Pain Intensity 6 Hypertensive/Tachycardic - Physical Exam General Appearance: no apparent distress Eye Exam: PERRL/EOMI, eyes nml inspection Ears, Nose, Throat Exam: normal ENT inspection, TMs normal, pharynx normal, moist mucous membranes Neck Exam: normal inspection, non-tender, supple, full range of motion, No meningismus, No mass, No Brudzinski, No Kernig's, No carotid bruit Respiratory Exam: normal breath sounds, lungs clear, airway intact Cardiovascular Exam: tachycardia, capillary refill <2 sec, No murmur Gastrointestinal/Abdomen Exam: soft, normal bowel sounds, tenderness (Mild LLQ TTP wo guarding or rebound) Back Exam: CVA tenderness (Mild L) Extremity Exam: normal inspection, normal range of motion Neurologic Exam: alert, oriented x 3, cooperative, science editor II-XII nml as tested, normal mood/affect, nml cerebellar function, nml station & gait, sensation nml Skin Exam: normal color, warm, dry Lymphatic Exam: No adenopathy SpO2 Interpretation: normal SpO2: 98 O2 Delivery: Room Air - Course Nursing assessment & vital signs reviewed: Yes - CT Exams Abdomen/Pelvis CT Interpretation: Tele-radiologist Report (EDEN/Nothing acute) Ordered Tests: Active Orders 24 hr Category Date Time Status IV Insertion STAT Care 04/01/23 22:03 Completed ABDOMEN AND PELVIS W/0 CONTRAS [CT] Stat Exams 04/01/23 23:13 Completed CULTURE,URINE Stat Lab 04/01/23 22:03 Received HCG QUALITATIVE, URINE Stat Lab 04/01/23 22:30 Completed UA W/RFX UR CULTURE Stat Lab 04/01/23 22:03 Completed Medication Summary Discontinued Medications Generic Name Dose Route Start Last Admin Trade Name Sandeep PRN Reason Stop Dose Admin Ketorolac Tromethamine 15 mg 04/02/23 00:04 04/02/23 00:07 Ketorolac Tromethamine 30 Mg/Ml Inj IV 04/02/23 00:05 15 mg STAT ONE Administration Ketorolac Tromethamine Confirm 04/02/23 00:07 Ketorolac Tromethamine 30 Mg/Ml Inj Administered 04/02/23 00:08 Dose 30 mg .ROUTE .STK-MED ONE Ondansetron HCl 4 mg 04/01/23 23:55 04/01/23 23:57 Ondansetron Hcl 4 Mg/2 Ml Vial IV 04/01/23 23:56 4 mg STAT ONE Administration Ondansetron HCl Confirm 04/01/23 23:56 Ondansetron Hcl 4 Mg/2 Ml Vial Administered 04/01/23 23:57 Dose 4 mg .ROUTE .STK-MED ONE Lab/Rad Data: Laboratory Results 04/01/23 04/01/23 Range/Units 22:30 22:03 Urine Color Yellow (Yellow) Urine Appearance Clear (Clear) Urine pH 6.5 (4.6-8.0) Ur Specific [place] >=1.030 A (1.005-1.030) Urine Protein 30 (Negative) Urine Glucose (UA) Negative (Negative) mg/dL Urine Ketones Trace A (Negative) Urine Blood Moderate A (Negative) Urine Nitrite Negative (Negative) Urine Bilirubin Negative (Negative) Urine Urobilinogen 1.0 A (0.2) mg/dL Ur Leukocyte Esterase Negative (Negative) U Hyaline Cast (Auto) 3-5 A (0-2) /LPF Urine Microscopic RBC 0-2 (0-5) /HPF Urine Microscopic WBC 3-5 (0-5) /HPF Ur Epithelial Cells Rare (None Seen) /HPF Urine Bacteria None Seen (None Seen) /HPF Urine Culture Reflexed YES (NO) Urine HCG, Qual NEGATIVE (NEGATIVE) - Progress Progress Note: 04/02/23 00:48 Nursing note and vital signs reviewed. No food or housing insecurities noted. All lab results reviewed thoroughly and shared with patient. CT scan result reviewed and shared with patient. Patient refused pain meds throughout her stay, but she requested some pain meds to before her discharge and was given 15 mg IV Toradol. Etiology of patient's pain is unclear at this time but there is no evidence of ureterolithiasis or acute surgical abdomen. Patient possibly has a mild urinary tract infection so will be started on Macrobid 100 mg twice a day for 5 days. Patient advised to follow-up with her PCP in 1 to 2 days and return to the ER if the pain increases or she develops a temperature greater 100.5. Patient's blood pressure elevated during the early part of her stay but decreased without any treatment to an acceptable level. 04/02/23 00:49 04/02/23 00:50 Counseled pt/family regarding: lab results, diagnosis, need for follow-up, rad results Medical Desision Making - Diagnostic Testing Diagnostic test were ordered, analyzed, and reviewed by me: Yes Radiological Interpretation: Teleradiologist Report - Risk of complications The pt has a mod risk of morbidity or mortality based on: Need for prescription drug management - Departure Departure Disposition: Home Clinical Impression: Hematuria, Back pain Condition: Stable Critical Care Time: No Referrals: BIJU SMTIH [Primary Care Provider] - Follow up/PCP as directed Instructions: Blood in the urine (hematuria) in adults, Severe Abdominal Pain, Adult (DC) Additional Instructions: Follow-up with your family MD in 1 to 2 days please. Start Macrobid twice a day for 3 days. Return to ER for increasing pain or temperature greater 100.5. Prescriptions: Nitrofurantoin Macro 100 mg [Macrobid 100MG Capsule] 100 mg PO BID #6 cap
[2023-04-01 22:57] LABS: HCG URINE TEST NEGATIVE (NEGATIVE)
[2023-04-01] MEDS ORDERED: Zofran 4 MG/2 ML VIAL IV ONE (23:55)
[2023-04-01] MEDS ORDERED: Zofran 4 MG/2 ML VIAL ONE (23:56)
--- NOTE | 2023-04-01 23:56 | XRAY ---
CLINICAL HISTORY:L CVA pain COMPARISON:Previous dated 11/01/2022. TECHNIQUE:A CT scan of the abdomen and pelvis was performed without IV contrast. FINDINGS: The left kidney measures 12.6 x 6.5 x 2.3 cm. A small 3 mm calculus is noted at the upper pole, no hydronephrosis. no mass or cyst seen. The right kidney measures 9.0 x 6.3 x 1,5 cm. No stone, mass, cyst, or hydronephrosis seen. Both ureters are collapsed. The urinary bladder is normally visualized. The liver is mildly enlarged measuring 18.5 cm with diffuse fatty infiltration. It shows regular margins. No hepatic mass is identified. The portal vein, intrahepatic biliary radicals, and the bile ducts are normal. Gall bladder appear normal with wall thickness. No radio-opaque calculus or pericholecystic fluid was identified. The common bile duct appears normal. Pancreas appears normal. No peripancreatic fat stranding, pancreatic pseudocyst, or peripancreatic fluid collection. Spleen normal in size, no mass seen. Both adrenal glands are unremarkable. Stomach and small bowel loops are unremarkable. The caecum and ileocecal junction appear normal. Large bowel loops appear normal without evidence of bowel obstruction. The sigmoid and rectum appear normal. The uterus and both adnexa are normal. Edema of posterior subcutaneous tissue is redemonstrated. No evidence of significant enlargement of the mesenteric or retroperitoneal lymph nodes. Mild degenerative changes are seen in the visualized skeleton. Visualized lung bases are normal. No pleural or pericardial effusion seen. IMPRESSION: 1. 3 mm non-obstructing calculus at the upper pole of the left kidney 2. Mildly enlarged fatty liver. 3 No acute abnormality was seen on this CT. Electronically Signed by: Lee Ann Mathews MD. (04/01/2023 22:55:32 [employer])
[2023-04-02 00:04] VITALS: BP 128/79; PULSE 97
[2023-04-02] MEDS ORDERED: TORAdol 30 mg Injection IV ONE (00:04)
[2023-04-02] MEDS ORDERED: TORAdol 30 mg Injection ONE (00:07)
[2023-04-02 00:08] VITALS: O2SAT 98
== END 2023-04-02 00:27 | disposition home or self-care (01) ==
LOC: ED 21:34
DX: R31.9 Hematuria, unspecified (principal); M54.9 Dorsalgia, unspecified; R10.32 Left lower quadrant pain; R11.0 Nausea; Z28.310 Unvaccinated for COVID-19; Z72.0 Tobacco use
CPT/HCPCS: 36000; 74176; 81001; 81025; 87086; 96374; 99284; J1885; J2405

== ENCOUNTER 2024-01-15 23:21 | Emergency (ER) | payer OTHER ==
[2024-01-15 23:45] VITALS: RESP 24
--- NOTE | 2024-01-15 23:55 | ERPHSYRPT ---
- History of Present Illness Source: patient Exam Limitations: no limitations Patient Subjective Stated Complaint: pt states that she is having bleeding from her belly button and having belly pain Triage Nursing Assessment: pt ambulated into the er; pt is axo x4; c/o abd pain; pt states 8/10 pain to abd; hyperactive bowel sounds in all quads; no tenderness with palpation; c/o nausea denies vomiting and diarrhea; skin PDW; no respiratory distress present; vitals wnl Physician History: Colitis patient's had problems with umbilical infection for couple months now. They have been treated as a fungus. She says he gets a bit better and then re turns. She has been doing some antifungal creams and cleansing techniques. She said now it is a little bit more painful. She said there is a little bit of blood. She says it is recurrent. She says she uses these treatments on a pretty consistent basis. She does not have any fever chills nausea vomiting or other systemic symptoms. Nothing makes symptoms better or worse. Allergies/Adverse Reactions: calamine Allergy (Mild, Verified 01/15/24 23:29) Rash famotidine Adverse Reaction (Verified 01/15/24 23:29) Home Medications: Etonogestrel [Nexplanon] 68 mg CLARIFY 11/01/22 [History] Empagliflozin [Jardiance] 10 mg PO DAILY 01/15/24 [History] Semaglutide [Ozempic] 0.25 mg SQ WEEKLY 01/15/24 [History] Hx Tetanus, Diphtheria Vaccination/Date Given: Yes Hx Influenza Vaccination/Date Given: No Hx Pneumococcal Vaccination/Date Given: No Immunizations Up to Date: No Travel Risk - International Travel Have you traveled outside of the country in past 3 weeks: No - Emerging Infectious Disease Are you exhibiting symptoms associated with any current EIDs: Yes Symptoms: Abdominal Pain - Review of Systems Constitutional: No Symptoms Eyes: No Symptoms Genitourinary Symptoms: No Symptoms Musculoskeletal: No Symptoms Skin: Skin Lesions Neurological: No Symptoms All Other Systems: Reviewed and Negative - Past Medical History Pertinent Past Medical History: Yes Neurological History: No Pertinent History ENT History: No Pertinent History Cardiac History: No Pertinent History Respiratory History: No Pertinent History Endocrine Medical History: Diabetes Type II Musculoskeletal History: No Pertinent History GI Medical History: Irritable Bowel History: No Pertinent History Psycho-Social History: Anxiety, Depression Female Reproductive Disorders: Other Other Medical History: PCOS, HS - Past Surgical History Past Surgical History: Yes Other Surgical History: wisdom teeth - Female History Hx Now: No - Social History Smoking Status: Light tobacco smoker Exposure to second hand smoke: Yes Drug Use: marijuana Patient Lives Alone: No - Social Determinants of Health Will the patient participate in the screening: Yes Do you worry about a steady place to live?: No Do you have any problems with any of the following?: No known problems In the past 12 months,have you had to go without utilities?: No Transportation Issues: No Has anyone in your support network made you feel unsafe?: No Have you or anyone in your house had to go without enough: No - Nursing Vital Signs Nursing Vital Signs: Initial Vital Signs Pulse Rate 85 01/15/24 23:30 Blood Pressure 129/93 01/15/24 23:30 O2 Sat by Pulse Oximetry 97 01/15/24 23:30 Pain Scale Pain Intensity 8 - Physical Exam General Appearance: no apparent distress Eye Exam: PERRL/EOMI Gastrointestinal/Abdomen Exam: soft, normal bowel sounds Neurologic Exam: alert, oriented x 3 Skin Exam: other (There is an area in her umbilicus that is erythematous. There are some thin slightly cloudy discharge. Not seeing a lot of evidence of a fungal infection at this time.) SpO2: 96 - Course Nursing assessment & vital signs reviewed: Yes Ordered Tests: Active Orders 24 hr Category Date Time Status CULTURE,WOUND Stat Lab 01/15/24 Ordered Medication Summary Discontinued Medications Generic Name Dose Route Start Last Admin Trade Name Sandeep PRN Reason Stop Dose Admin Hydrocodone Bitart/Acetaminophen 2 tab 01/15/24 23:49 Hydrocodone/Apap 5/325 1 Tab Tablet PO 01/15/24 23:50 SENT HOME W/ PATIENT ONE Trimethoprim/Sulfamethoxazole 1 tab 01/15/24 23:50 Smz/Tmp Ds Tablet 1 Tablet PO 01/15/24 23:51 STAT STA Lab/Rad Data: Wound culture was ordered and sent - Progress Progress: unchanged Progress Note: Patient was stable throughout stay. I got a culture purulent and start her on Bactrim in the event that it is bacterial as well. I would have her continue to use her antifungal treatments. She has to follow-up with her primary doctor. I thought that she may do well to get a ultrasound to look for a fistula of some sort. I advised her to follow-up with her doctor for this and see if they think it is needed 01/15/24 23:53 Medical Desision Making - Independent Historian Additional History obtained from: Mother - Diagnostic Testing Diagnostic test were ordered, analyzed, and reviewed by me: No - Risk of complications Minimal Risk: Minimal risk of morbidity - Departure Departure Disposition: Home Clinical Impression: Cellulitis of umbilicus Condition: Stable Critical Care Time: No Referrals: BIJU SMITH [Primary Care Provider] - Follow up/PCP as directed Prescriptions: Ketorolac Trometh 10 mg Tab [TORAdol 10 MG TABLET] 10 mg PO Q6H PRN PRN #20 tablet PRN Reason: Pain Sulfamethoxazole/Trimethoprim [Bactrim Ds Tablet] 1 each PO BID #20 tablet
[2024-01-15] MEDS ORDERED: BACTRIM DS TABLET PO ONE (23:56)
[2024-01-15] MEDS ORDERED: NORCO 5/325 MG ONE (23:57)
[2024-01-15] MEDS: BACTRIM DS TABLET PO STA (23:57)
[2024-01-15] MEDS: NORCO 5/325 MG PO ONE (23:58)
[2024-01-16 00:11] VITALS: BP 135/93; PULSE 82; O2SAT 98
== END 2024-01-16 00:17 | disposition home or self-care (01) ==
LOC: ED 23:21
DX: L03.316 Cellulitis of umbilicus (principal); E11.9 Type 2 diabetes mellitus without complications; Z79.84 Long term (current) use of oral hypoglycemic drugs; Z79.85 Long-term (current) use of injectable non-insulin antidiabetic drugs; Z79.899 Other long term (current) drug therapy; Z72.0 Tobacco use
CPT/HCPCS: 87070; 99283; A9270-GY

== ENCOUNTER 2024-03-15 07:30 | Day surgery (SDC) | payer OTHER ==
[2024-03-15] MEDS ORDERED: Depo-Medrol 40 MG/ML IM ONE (07:31)
[2024-03-15] MEDS ORDERED: Sodium Chloride 0.9(Preservative Free) 10 ML IJ ONE (07:31)
[2024-03-15] MEDS ORDERED: LIDOCAINE HCL 1% AMPUL 5 ML IJ ONE (07:31)
[2024-03-15 07:56] LABS: HCG URINE TEST NEGATIVE (NEGATIVE)
[2024-03-15] MEDS ORDERED: Versed 2 MG/2 ML Injection ONE (08:46)
--- NOTE | 2024-03-15 12:01 | XRAY ---
Indication: Lumbar SWATHI. Intraoperative fluoroscopy provided for 19 seconds. 2 digital spot image submitted for interpretation demonstrates posterior needle tip projecting posterior to L4-L5 interspace. Small amount of contrast injected for needle tip placement. Correlate with intraoperative findings/report.
--- NOTE | 2024-03-15 13:01 | XRAY ---
19 seconds of fluoroscopy was used in surgery for a lumbar SWATHI.
== END 2024-03-15 09:15 | disposition home or self-care (01) ==
LOC: SDC-PAIN 07:30
PROVIDERS: ATTEND Psychiatry & Neurology Pain Medicine
DX: M54.16 Radiculopathy, lumbar region (principal); E11.9 Type 2 diabetes mellitus without complications
CPT/HCPCS: 62323; 72100; 77003; 81025; 82947; J2250; Q9966

== ENCOUNTER 2024-06-19 15:54 | Emergency (ER) | payer OTHER ==
--- NOTE | 2024-06-19 16:01 | ERPHSYRPT ---
- History of Present Illness Time Seen by Provider: 06/19/24 16:01 Historian: patient, family Exam Limitations: no limitations Physician History: This is a morbidly obese 23-year-old white female patient who arrives by private vehicle secondary to right side abdominal pain, vomiting and diarrhea. She has had the symptoms intermittently for the last 3 weeks. It coincides with the timing of when she had her Ozempic dose increased. This most recent episode began yesterday and was worse today. She denies chest pain. She denies shortness of breath. She has not seen the examiner rating clerk and has not had a colonoscopy in the past. She describes the pain is right side sharp, aching constant pain. Patient has not had an intra-abdominal surgery performed. Nika garcia is diabetic. Patient does see a pain specialist, Dr. Landry. The patient had plain, 2 view abdominal x-ray performed on 06/05/2024. This was done as an outpatient and I reviewed the results which show nonacute nonobstructed unremarkable study. Timing/Duration: yesterday Activities at Onset: none Quality: aching, sharpness Abdominal Pain Onset Location: RUQ, RLQ Pain Radiation: no radiation Severity of Pain-Max: moderate Modifying Factors: Improves With: vomiting Associated Symptoms: diarrhea, loss of appetite, nausea, vomiting Previous symptoms: same symptoms as today, no recent treatment Allergies/Adverse Reactions: calamine Allergy (Mild, Verified 06/19/24 16:17) Rash amoxicillin Allergy (Verified 06/19/24 16:17) valacyclovir Allergy (Verified 06/19/24 16:17) famotidine Adverse Reaction (Verified 06/19/24 16:17) Home Medications: Etonogestrel [Nexplanon] 68 mg CLARIFY 11/01/22 [History] Empagliflozin [Jardiance] 10 mg PO DAILY 01/15/24 [History] Semaglutide [Ozempic] 0.25 mg SQ WEEKLY 01/15/24 [History] Hx Tetanus, Diphtheria Vaccination/Date Given: Yes Hx Influenza Vaccination/Date Given: No Hx Pneumococcal Vaccination/Date Given: No Travel Risk - International Travel Have you traveled outside of the country in past 3 weeks: No - Emerging Infectious Disease Are you exhibiting symptoms associated with any current EIDs: Yes Symptoms: Abdominal Pain, Diarrhea, Vomitting - Review of Systems Constitutional: No Symptoms Eyes: No Symptoms Ears, Nose, & Throat: No Symptoms Respiratory: No Symptoms Cardiac: No Symptoms Abdominal/Gastrointestinal: Abdominal Pain, Nausea, Vomiting, Diarrhea, Appetite Changes Genitourinary Symptoms: No Symptoms Musculoskeletal: No Symptoms Skin: No Symptoms Neurological: No Symptoms Psychological: No Symptoms Endocrine: No Symptoms Hematologic/Lymphatic: No Symptoms Immunological/Allergic: No Symptoms All Other Systems: Reviewed and Negative - Past Medical History Pertinent Past Medical History: Yes Neurological History: No Pertinent History ENT History: No Pertinent History Cardiac History: No Pertinent History Respiratory History: No Pertinent History Endocrine Medical History: Diabetes Type II Musculoskeletal History: No Pertinent History GI Medical History: Irritable Bowel History: No Pertinent History Psycho-Social History: Anxiety, Depression Female Reproductive Disorders: Other Other Medical History: PCOS, HS - Past Surgical History Past Surgical History: Yes Other Surgical History: wisdom teeth - Social History Smoking Status: Light tobacco smoker Exposure to second hand smoke: Yes Drug Use: marijuana Patient Lives Alone: No - Social Determinants of Health Will the patient participate in the screening: Yes Do you worry about a steady place to live?: No In the past 12 months,have you had to go without utilities?: No Transportation Issues: No Has anyone in your support network made you feel unsafe?: No Have you or anyone in your house had to go without enough: No - Nursing Vital Signs Nursing Vital Signs: Initial Vital Signs Temperature 97.8 F 06/19/24 16:19 Pulse Rate 99 H 06/19/24 16:19 Respiratory Rate 20 06/19/24 16:19 Blood Pressure 163/95 06/19/24 16:19 O2 Sat by Pulse Oximetry 97 06/19/24 16:19 Pain Scale Pain Intensity 7 - Physical Exam General Appearance: mild distress, alert, anxiety, obese Eye Exam: PERRL/EOMI, eyes nml inspection Ears, Nose, Throat Exam: normal ENT inspection, moist mucous membranes Neck Exam: normal inspection, non-tender, supple, full range of motion Respiratory Exam: normal breath sounds, lungs clear, airway intact, No chest tenderness, No respiratory distress Cardiovascular Exam: regular rate/rhythm, normal heart sounds, normal peripheral pulses Gastrointestinal/Abdomen Exam: soft, normal bowel sounds, tenderness (Right side tenderness to palpation), guarding (Side tenderness to palpation) Pelvic Exam: not done Rectal Exam: not done Back Exam: normal inspection, normal range of motion, No CVA tenderness, No vertebral tenderness Extremity Exam: normal inspection, normal range of motion, pelvis stable Neurologic Exam: alert, oriented x 3, cooperative, invertebrate paleontologist II-XII nml as tested, nml cerebellar function, nml station & gait, sensation nml Skin Exam: normal color, warm, dry Lymphatic Exam: No adenopathy SpO2 Interpretation: normal O2 Delivery: Room Air - Course Nursing assessment & vital signs reviewed: Yes Ordered Tests: Active Orders 24 hr Category Date Time Status IV Insertion STAT Care 06/19/24 16:15 Active ABDOMEN AND PELVIS W/0 CONTRAS [CT] Stat Exams 06/19/24 16:15 Ordered AMYLASE Stat Lab 06/19/24 16:40 Completed CBC W DIFF Stat Lab 06/19/24 16:40 Completed CMP Stat Lab 06/19/24 16:40 Completed HCG QUALITATIVE, SERUM Stat Lab 06/19/24 16:40 Completed LIPASE Stat Lab 06/19/24 16:40 Completed UA W/RFX UR CULTURE Stat Lab 06/19/24 16:26 Completed Medication Summary Discontinued Medications Generic Name Dose Route Start Last Admin Trade Name Freq PRN Reason Stop Dose Admin Diphenhydramine HCl 25 mg 06/19/24 17:23 06/19/24 17:28 Diphenhydramine Hcl 50 Mg/Ml Vial IV 06/19/24 17:24 25 mg STAT ONE Administration Diphenhydramine HCl Confirm 06/19/24 17:26 Diphenhydramine Hcl 50 Mg/Ml Vial Administered 06/19/24 17:27 Dose 50 mg .ROUTE .STK-MED ONE Sodium Chloride 1,000 mls @ 999 mls/hr 06/19/24 16:15 06/19/24 16:38 Sodium Chloride 0.9% 1000 Ml IV 06/19/24 17:15 999 mls/hr .Q1H1M STA Administration Sodium Chloride Confirm 06/19/24 16:34 Sodium Chloride 0.9% 1000 Ml Administered 06/19/24 16:35 Dose 1,000 mls @ ud .ROUTE .STK-MED ONE Pantoprazole Sodium 40 mg 06/19/24 16:15 06/19/24 16:37 Pantoprazole 40 Mg Vial IV 06/19/24 16:16 40 mg STAT ONE Administration Pantoprazole Sodium Confirm 06/19/24 16:34 Pantoprazole 40 Mg Vial Administered 06/19/24 16:35 Dose 40 mg IV .STK-[facility] ONE Prochlorperazine Edisylate 5 mg 06/19/24 16:15 06/19/24 16:37 Prochlorperazine Edisylate 10 Mg/2 Ml Vial IV 06/19/24 16:16 5 mg STAT ONE Administration Prochlorperazine Edisylate Confirm 06/19/24 16:34 Prochlorperazine Edisylate 10 Mg/2 Ml Vial Administered 06/19/24 16:35 Dose 10 mg .ROUTE .[facility] ONE Lab/Rad Data: Laboratory Result Diagrams 06/19/24 16:40 06/19/24 16:40 Laboratory Results 06/19/24 06/19/24 06/19/24 Range/Units 16:40 16:40 16:40 WBC 15.5 H (3.98-10.04) x10^3/uL RBC 5.13 (3.93-5.22) x10^6/uL Hgb 13.8 (11.2-15.7) g/dL Hct 42.5 (34.1-44.9) % MCV 82.8 (79.4-94.8) fL MCH 26.9 (25.6-32.2) pg MCHC 32.5 (32.2-35.5) g/dL RDW 13.4 (11.7-14.4) % Plt Count 428 H (182-369) x10^3/uL MPV 10.1 (9.4-12.3) fL Gran % 59.6 (34.0-71.1) % Immature Gran % (Auto) 0.5 H (0.001-0.429) % Nucleat RBC Rel Count 0.0 (0.00-0.2) % Eos # (Auto) 0.44 H (0.04-0.36) x10^3/uL Immature Gran # (Auto) 0.07 H (0.001-0.031) x10^3u/L Absolute Lymphs (auto) 4.98 H (1.18-3.74) x10^3/uL Absolute Monos (auto) 0.70 (0.24-0.86) x10^3/uL Absolute Nucleated RBC 0.00 (0.00-0.012) x10^3u/L Lymphocytes % 32.2 (19.3-51.7) % Monocytes % 4.5 L (4.7-12.5) % Eosinophils % 2.8 (0.7-5.8) % Basophils % 0.4 (0.1-1.2) % Absolute Granulocytes 9.21 H (1.56-6.13) x10^3/uL Basophils # 0.06 (0.01-0.08) x10^3/uL Sodium 141 (135-145) mmol/L Potassium 3.5 (3.5-5.1) mmol/L Chloride 106 (98-107) mmol/L Carbon Dioxide 24 (22-30) mmol/L Anion Gap 14.0 (5-15) MEQ/L BUN 9 (7-17) mg/dL Creatinine 0.74 (0.52-1.04) mg/dL Estimated GFR 115.1 ML/MIN Glucose 122 H (74-106) mg/dL Calcium 9.1 (8.4-10.2) mg/dL Total Bilirubin 0.70 (0.2-1.3) mg/dL AST 32 (14-36) U/L ALT 32 (0-35) U/L Alkaline Phosphatase 94 (38-126) U/L Serum Total Protein 8.0 (6.3-8.2) g/dL Albumin 4.3 (3.5-5.0) g/dL Amylase 42 (30-110) U/L Lipase 85 (23-300) U/L Serum HCG, Qual NEGATIVE (NEGATIVE) Urine Color (Yellow) Urine Appearance (Clear) Urine pH (4.6-8.0) Ur Specific [place] (1.005-1.030) Urine Protein (Negative) Urine Glucose (UA) (Negative) mg/dL Urine Ketones (Negative) Urine Blood (Negative) Urine Nitrite (Negative) Urine Bilirubin (Negative) Urine Urobilinogen (0.2) mg/dL Ur Leukocyte Esterase (Negative) U Hyaline Cast (Auto) (0-2) /LPF Urine Microscopic RBC (0-5) /HPF Urine Microscopic WBC (0-5) /HPF Ur Epithelial Cells (None Seen) /HPF Urine Bacteria (None Seen) /HPF Urine Culture Reflexed (NO) 06/19/24 Range/Units 16:26 WBC (3.98-10.04) x10^3/uL RBC (3.93-5.22) x10^6/uL Hgb (11.2-15.7) g/dL Hct (34.1-44.9) % MCV (79.4-94.8) fL MCH (25.6-32.2) pg MCHC (32.2-35.5) g/dL RDW (11.7-14.4) % Plt Count (182-369) x10^3/uL MPV (9.4-12.3) fL Gran % (34.0-71.1) % Immature Gran % (Auto) (0.001-0.429) % Nucleat RBC Rel Count (0.00-0.2) % Eos # (Auto) (0.04-0.36) x10^3/uL Immature Gran # (Auto) (0.001-0.031) x10^3u/L Absolute Lymphs (auto) (1.18-3.74) x10^3/uL Absolute Monos (auto) (0.24-0.86) x10^3/uL Absolute Nucleated RBC (0.00-0.012) x10^3u/L Lymphocytes % (19.3-51.7) % Monocytes % (4.7-12.5) % Eosinophils % (0.7-5.8) % Basophils % (0.1-1.2) % Absolute Granulocytes (1.56-6.13) x10^3/uL Basophils # (0.01-0.08) x10^3/uL Sodium (135-145) mmol/L Potassium (3.5-5.1) mmol/L Chloride (98-107) mmol/L Carbon Dioxide (22-30) mmol/L Anion Gap (5-15) MEQ/L BUN (7-17) mg/dL Creatinine (0.52-1.04) mg/dL Estimated GFR ML/MIN Glucose (74-106) mg/dL Calcium (8.4-10.2) mg/dL Total Bilirubin (0.2-1.3) mg/dL AST (14-36) U/L ALT (0-35) U/L Alkaline Phosphatase (38-126) U/L Serum Total Protein (6.3-8.2) g/dL Albumin (3.5-5.0) g/dL Amylase (30-110) U/L Lipase (23-300) U/L Serum HCG, Qual (NEGATIVE) Urine Color Yellow (Yellow) Urine Appearance Cloudy A (Clear) Urine pH 5.5 (4.6-8.0) Ur Specific [place] >=1.030 A (1.005-1.030) Urine Protein 30 (Negative) Urine Glucose (UA) Negative (Negative) mg/dL Urine Ketones Trace A (Negative) Urine Blood Negative (Negative) Urine Nitrite Negative (Negative) Urine Bilirubin Negative (Negative) Urine Urobilinogen 0.2 (0.2) mg/dL Ur Leukocyte Esterase Negative (Negative) U Hyaline Cast (Auto) NONE SEEN (0-2) /LPF Urine Microscopic RBC 0-2 (0-5) /HPF Urine Microscopic WBC 3-5 (0-5) /HPF Ur Epithelial Cells Moderate A (None Seen) /HPF Urine Bacteria Rare A (None Seen) /HPF Urine Culture Reflexed NO (NO) - Progress Progress: improved, pain not gone completely, re-examined Progress Note: 06/19/24 16:51 My medical decision making and the assignment of moderate complexity to this patient's medical issue today is based on review of the patient's past medical history, review of the patient's medication list, reviewed patient drug allergy list, history present illness and physical findings on examination. The workup in this patient includes placement of intravenous line, infusion of crystalloid solution, infusion of Zofran, amylase, lipase, urinalysis, test, CBC, CMP, viral swabs, monotest. Differential diagnosis includes but is not limited to viral illness, electrolyte abnormalities, , urinary tract infection, dehydration, pancreatitis, acute intra-abdominal/pelvic abnormality, medication side effect, cholecystitis 06/19/24 16:53 06/19/24 17:49 I interpreted the patient's laboratory data results. Based on the laboratory data results, the patient does have evidence of dehydration. She has vomited several times in her multiple episodes of vomiting likely caused her leukocytosi s. However, the patient is feeling better after antiemetics and IV hydration. She wants to leave AGAINST MEDICAL ADVICE. I advised her, in the presence of the patient's family member, that she should stay to complete the workup. She understands that if she does not complete the workup she will have to leave AGAINST MEDICAL ADVICE and signed the AGAINST MEDICAL ADVICE form. She is awake she is alert she is oriented and she understands that her symptoms may worsen which may require her to return to the emergency department. Her situation may be even more emergent than when she arrived. She understands and she wants to leave AGAINST MEDICAL ADVICE. Medical Desision Making - Independent Historian Additional History obtained from: Family - Diagnostic Testing Diagnostic test were ordered, analyzed, and reviewed by me: Yes - Risk of complications The pt has a mod risk of morbidity or mortality based on: Need for prescription drug management - Departure Departure Disposition: AMA Clinical Impression: Vomiting, Abdominal pain Condition: Stable Critical Care Time: No Referrals: BIJU SMITH [NON-STAFF PHY W/O PRIVILEGES] - Follow up/PCP as directed Additional Instructions: Drink plenty of clear liquids before advancing your diet. Avoid fatty greasy spicy foods. Call your prescribing provider to make them aware of your symptoms since you have had an increase in your Ozempic dosing. Have them provide you with instructions and management. Return to the emergency department if symptoms worsen. Prescriptions: Ondansetron ODT 4 MG [Zofran Odt 4 mg] 4 mg PO Q6H PRN PRN #10 tablet PRN Reason: Vomiting
[2024-06-19 16:26] VITALS: TEMP 97.8
[2024-06-19] MEDS ORDERED: Sodium Chloride 0.9% 1000 ML 1,000 ML ONE (16:34)
[2024-06-19] MEDS ORDERED: PROTONIX 40 MG IV IV ONE (16:34)
[2024-06-19] MEDS ORDERED: Compazine 10 MG/2 ML ONE (16:34)
[2024-06-19] MEDS: Compazine 10 MG/2 ML IV ONE (16:37)
[2024-06-19] MEDS: PROTONIX 40 MG IV IV ONE (16:37)
[2024-06-19] MEDS: Sodium Chloride 0.9% 1000 ML 1,000 ML IV STA (16:38)
[2024-06-19 17:09] LABS: Absolute Neutrophil Ct (ANC) 9.21 x10^3/uL (1.56-6.13); BASOPHIL % 0.4 % (0.1-1.2); Basophil (Absolute #) 0.06 x10^3/uL (0.01-0.08); Eosinophil % 2.8 % (0.7-5.8); Eosinophil (Absolute #) 0.44 x10^3/uL (0.04-0.36); Hematocrit 42.5 % (34.1-44.9); Hemoglobin 13.8 g/dL (11.2-15.7); IMMATURE GRAN # 0.07 x10^3u/L (0.001-0.031); IMMATURE GRAN % 0.5 % (0.001-0.429); Lymphocyte (Absolute #) 4.98 x10^3/uL (1.18-3.74); Lymphocytes % 32.2 % (19.3-51.7); Mean Cell Volume 82.8 fL (79.4-94.8); Mean Corpuscular Hemoglobin 26.9 pg (25.6-32.2); Mean Corpuscular Hgb Concent. 32.5 g/dL (32.2-35.5); Mean Platelet Volume 10.1 fL (9.4-12.3); Monocytes % 4.5 % (4.7-12.5); Neutrophil % 59.6 % (34.0-71.1); Platelet Count 428 x10^3/uL (182-369); Red Blood Count 5.13 x10^6/uL (3.93-5.22); Red Cell Distribution Width 13.4 % (11.7-14.4); White Blood Count 15.5 x10^3/uL (3.98-10.04)
[2024-06-19 17:12] LABS: Appearance Cloudy (Clear); Bacteria Rare /HPF (None Seen); Bilirubin Negative (Negative); Blood Negative (Negative); Epithelial Cells Moderate /HPF (None Seen); Glucose, Urine Negative (Negative); Hyaline Casts NONE SEEN /LPF (0-2); Ketones Trace (Negative); Leukocyte Esterase Negative (Negative); Nitrite Negative (Negative); Ph 5.5 (4.6-8.0); Protein,Urine Dip 30 (Negative); RBC 0-2 /HPF (0-5); Specific Gravity >=1.030 (1.005-1.030); Urobilinogen 0.2 mg/dL (0.2)
[2024-06-19] MEDS ORDERED: BENADRYL 50 MG/ML ONE (17:26)
[2024-06-19] MEDS: BENADRYL 50 MG/ML IV ONE (17:28)
[2024-06-19 17:29] LABS: HCG SERUM TEST NEGATIVE (NEGATIVE)
[2024-06-19 17:31] LABS: ALBUMIN 4.3 g/dL (3.5-5.0); BILIRUBIN,TOTAL 0.7 mg/dL (0.2-1.3); Calcium 9.1 mg/dL (8.4-10.2); Creatinine 1 0.74 mg/dL (0.52-1.04); EST GLOMERULAR FILTRATION RATE 115.1 ML/MIN; Potassium 3.5 mmol/L (3.5-5.1)
[2024-06-19 17:51] VITALS: BP 146/98; PULSE 68; RESP 19; O2SAT 96
[2024-06-19 17:53] LABS: INFLUENZA A NEGATIVE (NEGATIVE); INFLUENZA B NEGATIVE (NEGATIVE); RESPIRATORY SYNCTIAL VIRUS NEGATIVE (NEGATIVE); SARS-CoV-2 Xpert Express NEGATIVE (NEGATIVE)
== END 2024-06-19 17:59 | disposition left against medical advice (07) ==
LOC: ED 15:54
DX: R11.2 Nausea with vomiting, unspecified (principal); R10.9 Unspecified abdominal pain; R19.7 Diarrhea, unspecified; E11.9 Type 2 diabetes mellitus without complications; Z79.84 Long term (current) use of oral hypoglycemic drugs; Z79.85 Long-term (current) use of injectable non-insulin antidiabetic drugs; Z79.899 Other long term (current) drug therapy; Z72.0 Tobacco use
CPT/HCPCS: 0241U; 36415; 80053; 81001; 82150; 83690; 84703; 85025; 96360; 96374; 96375; 99284; J1200

== ENCOUNTER 2024-09-04 05:53 | Emergency (ER) | payer OTHER ==
[2024-09-04 06:08] VITALS: TEMP 96.6
[2024-09-04] MEDS ORDERED: DUONEB 0.5-3 MG/3 ml Neb IH ONE ×2 (06:29→06:45)
[2024-09-04] MEDS: DUONEB 0.5-3 MG/3 ml Neb IH ONE (06:32)
[2024-09-04] MEDS ORDERED: solu-MEDROL ONE (06:35)
[2024-09-04] MEDS ORDERED: HYDROCODONE-ACETAMIN 2.5-108/5 ML SOLUTION ONE (06:35)
[2024-09-04] MEDS ORDERED: Sterile H2O 10 ml IJ ONE (06:36)
[2024-09-04] MEDS: HYDROCODONE-ACETAMIN 2.5-108/5 ML SOLUTION PO STA (06:37)
--- NOTE | 2024-09-04 06:40 | ERPHSYRPT ---
- History of Present Illness Time Seen by Provider: 09/04/24 06:15 Source: patient, family Patient Subjective Stated Complaint: "I have been coughing and having trouble breathing. I have pain in my chest from coughing and can't sleep. I was diagnosed with Bronchitis and been on antibiotics." Triage Nursing Assessment: Pt presents to ER with complaints of shortness of breath and cough x 5 days. Pt is alert and oriented x 3. Appears anxious and coughing harshly upon triage. Lung sounds are clear and equal throughout. Rating pain 8/10 scale in chest from excessive coughing. Denies nausea/vomiting/diarrhea. Dx w/ bronchitis and finished z-feliz yesterday. Has been using Albuterol inhaler and OTC meds to try to relieve s/sx without success. Pt face is flushed and pt states she feels hot, but is afebrile on triage. Physician History: This is a morbidly obese 24-year-old white female patient who has had symptoms of cough and fever sore throat body aches for approximately 5 to 6 days. Patient was seen by an outside clinic and was given a Z-Feliz which she completed, Medrol Dosepak and albuterol inhaler. Her symptoms are not improving. She has no bleeding or clotting disorders. She has had no hemoptysis. She has no fever on arrival to the emergency department her room air oxygen saturation levels 98%. She has chest pain with coughing only. The coughing is keeping her up and awake at night. 5 days ago she had negative viral swabs. She repeated an outpatient COVID test approximately 36 hours ago and it was negative as well. Timing/Duration: day(s) (Symptoms for 5 to 6 days) Cough Quality/Degree: moderate, dry cough Possible Cause: occasional episodes Modifying Factors: Improves With: coughing Associated Symptoms: fever (Low-grade fever at home), chest pain/soreness (Only with coughing), cough, muscle aches, nasal congestion, shortness of breath (Only with coughing), wheezing Allergies/Adverse Reactions: calamine Allergy (Mild, Verified 09/04/24 05:55) Rash amoxicillin Allergy (Verified 09/04/24 05:55) valacyclovir Allergy (Verified 09/04/24 05:55) prochlorperazine [From Compazine] Adverse Reaction (Severe, Verified 09/04/24 05:55) famotidine Adverse Reaction (Verified 09/04/24 05:55) Home Medications: Etonogestrel [Nexplanon] 68 mg CLARIFY 11/01/22 [History] Albuterol 8 gm Mdi Hfa [Ventolin Hfa MDI] 8 gm IH Q6HPRN PRN 09/04/24 [History] Azithromycin 250 mg [Zithromax 250 MG TABLET] 250 mg PO ZPACK 09/04/24 [History] methylPREDNISolone [Methylprednisolone] 4 mg PO DAILY 09/04/24 [History] Hx Tetanus, Diphtheria Vaccination/Date Given: Yes Hx Influenza Vaccination/Date Given: No Hx Pneumococcal Vaccination/Date Given: No Immunizations Up to Date: No Travel Risk - International Travel Have you traveled outside of the country in past 3 weeks: No - Emerging Infectious Disease Are you exhibiting symptoms associated with any current EIDs: Yes Symptoms: Shortness of Breath - Review of Systems Constitutional: Fever (Measured a fever at home) Eyes: No Symptoms Ears, Nose, & Throat: Nose Congestion Respiratory: Cough, Wheezing Cardiac: No Symptoms Abdominal/Gastrointestinal: No Symptoms Genitourinary Symptoms: No Symptoms Musculoskeletal: Arthralgias, Myalgias Skin: No Symptoms Neurological: No Symptoms Psychological: No Symptoms Endocrine: No Symptoms Hematologic/Lymphatic: No Symptoms Immunological/Allergic: No Symptoms All Other Systems: Reviewed and Negative - Past Medical History Pertinent Past Medical History: Yes Neurological History: No Pertinent History ENT History: No Pertinent History Cardiac History: No Pertinent History Respiratory History: No Pertinent History Endocrine Medical History: Other Musculoskeletal History: No Pertinent History GI Medical History: Diverticulosis, Irritable Bowel History: No Pertinent History Psycho-Social History: Anxiety, Depression Female Reproductive Disorders: Other Other Medical History: PCOS, HS, PRE-DIABETIC, PSORIASIS - Past Surgical History Past Surgical History: Yes Neuro Surgical History: No Pertinent History Cardiac: No Pertinent History Respiratory: No Pertinent History Gastrointestinal: Cholecystectomy Genitourinary: No Pertinent History Musculoskeletal: No Pertinent History Female Surgical History: No Pertinent History Other Surgical History: wisdom teeth - Female History Hx Last Menstrual Period: UNKNOWN Hx Now: No - Social History Smoking Status: Current every day smoker Exposure to second hand smoke: No Drug Use: none - Social Determinants of Health Will the patient participate in the screening: Yes Do you worry about a steady place to live?: No Do you have any problems with any of the following?: No known problems In the past 12 months,have you had to go without utilities?: No Transportation Issues: No Has anyone in your support network made you feel unsafe?: No Have you or anyone in your house had to go w/o enough food: No - Nursing Vital Signs Nursing Vital Signs: Initial Vital Signs Temperature 96.6 F 09/04/24 05:58 Pulse Rate 90 09/04/24 05:58 Respiratory Rate 28 H 09/04/24 05:58 Blood Pressure 129/89 09/04/24 05:58 O2 Sat by Pulse Oximetry 98 09/04/24 05:58 Pain Scale Pain Intensity 8 - Physical Exam General Appearance: mild distress, alert, anxiety, obese Eye Exam: PERRL/EOMI, eyes nml inspection Ears, Nose, Throat Exam: normal ENT inspection, moist mucous membranes Neck Exam: normal inspection, non-tender, supple, full range of motion Respiratory Exam: lungs clear, airway intact, wheezing (Left side expiratory wheezing), No chest tenderness Cardiovascular Exam: regular rate/rhythm, normal heart sounds, normal peripheral pulses Gastrointestinal/Abdomen Exam: soft, normal bowel sounds, No tenderness Pelvic Exam: not done Rectal Exam: not done Back Exam: normal inspection, normal range of motion, No CVA tenderness, No vertebral tenderness Extremity Exam: normal inspection, normal range of motion, pelvis stable Neurologic Exam: alert, oriented x 3, cooperative, digital marketing executive II-XII nml as tested, nml cerebellar function, nml station & gait, sensation nml Lymphatic Exam: No adenopathy SpO2 Interpretation: normal SpO2: 98 O2 Delivery: Room Air - Course Nursing assessment & vital signs reviewed: Yes EKG Interpreted by Me: RATE (70), Sinus Rhythm, NORMAL AXIS, NORMAL INTERVALS, NORMAL QRS, Other (No acute ischemia on today's twelve-lead EKG. QTc is 417) Ordered Tests: Active Orders 24 hr Category Date Time Status EKG-ER Only STAT Care 09/04/24 06:37 Ordered CHEST 1 VIEW (PORTABLE) Stat Exams 09/04/24 06:29 Ordered Respiratory Therapy Assessment DAILY RT 09/04/24 06:35 Active Medication Summary Generic Name Dose Route Start Last Admin Trade Name Freq PRN Reason Stop Dose Admin Methylprednisolone Sodium 0 mg 09/04/24 06:42 Succinate 125 mg/ Sterile IV 09/04/24 06:43 Water 2 ml STAT ONE Ceftriaxone Sodium 1 gm in 100 mls @ 200 mls/hr 09/04/24 06:42 Rocephin 1 Gm / 100 Ml Nacl IV 09/04/24 07:11 STAT ONE Discontinued Medications Generic Name Dose Route Start Last Admin Trade Name Sandeep PRN Reason Stop Dose Admin Hydrocodone Bitart/Acetaminophen 10 ml 09/04/24 06:30 09/04/24 06:37 Hydrocodone/Acetaminophen 5 Ml Udcup PO 09/04/24 06:31 10 ml STAT STA Administration Hydrocodone Bitart/Acetaminophen Confirm 09/04/24 06:35 Hydrocodone/Acetaminophen 5 Ml Udcup Administered 09/04/24 06:36 Dose 10 ml .ROUTE .STK-MED ONE Albuterol/Ipratropium 3 ml 09/04/24 06:30 09/04/24 06:32 Ipratropium/Albuterol Sulfate 3 Ml Ampul.Neb IH 09/04/24 06:31 3 ml STAT ONE Administration Albuterol/Ipratropium Confirm 09/04/24 06:29 Ipratropium/Albuterol Sulfate 3 Ml Ampul.Neb Administered 09/04/24 06:30 Dose 3 ml IH .STK-MED ONE Ceftriaxone Sodium 1,000 mg 09/04/24 06:29 Ceftriaxone Sodium 1000 Mg Inj Vial IM 09/04/24 06:30 STAT ONE Methylprednisolone Sodium 0 mg 09/04/24 06:30 Succinate 125 mg/ Sterile IM 09/04/24 06:31 Water 2 ml STAT ONE Methylprednisolone Sodium 0 mg 09/04/24 06:42 Succinate 125 mg/ Sterile IV 09/04/24 06:43 Water 2 ml STAT ONE Methylprednisolone Sodium Succinate Confirm 09/04/24 06:35 Methylprednis Sod Succ 125 Mg/2 Ml Vial Administered 09/04/24 06:36 Dose 125 mg .ROUTE .STK-MED ONE Sterile Water Confirm 09/04/24 06:36 Water For Injection,Sterile 10 Ml Vial Administered 09/04/24 06:37 Dose 10 ml IJ .STK-MED ONE - Progress Progress: improved, re-examined Air Movement: good Progress Note: 09/04/24 06:40 My medical decision making and the assignment of low complexity to this patient's medical issue today is based on review of the patient's past medical history, review the patient's medication list, reviewed patient drug allergy list, history present illness and physical findings on examination. The workup in this patient includes chest x-ray, placement of intravenous line, twelve-lead EKG, infusion of Rocephin intravenously, infusion of Solu-Medrol intravenously, respiratory therapy consultation for patient to receive a DuoNeb nebulizer treatment, and hydrocodone/acetaminophen elixir for cough suppression. I do not think it is necessary to repeat her viral swabs. Differential diagnosis includes but is not limited to viral/bacterial bronchitis, upper respiratory infection, pneumonia 09/04/24 06:48 I interpreted the preliminary report of the patient's portable chest x-ray. Patient is aware this is a preliminary report only. It appears the patient has a right base atelectasis versus early infiltrate. Blood Culture(s) Obtained: No Antibiotics given: Yes Counseled pt/family regarding: diagnosis, need for follow-up, rad results Medical Desision Making - Independent Historian Additional History obtained from: Family - Diagnostic Testing Diagnostic test were ordered, analyzed, and reviewed by me: Yes Radiological Interpretation: Interpreted by me, Teleradiologist Report - Risk of complications The pt has a mod risk of morbidity or mortality based on: Need for prescription drug management - Departure Departure Disposition: Home Clinical Impression: Right pulmonary infiltrate on CXR Condition: Stable Critical Care Time: No Referrals: PEDRO MONTOYA [Primary Care Provider] - Follow up/PCP as directed Additional Instructions: Drink plenty of fluids. Avoid exposure to any type of smoke or vaping. Continue your steroids until the treatment has been completed. Take your new antibiotics as prescribed. Use your inhaler 2 puffs every 4 hours while awake. Call your primary care provider today, 09/04/2024, to make arrangements for follow-up appointment for further evaluation and management and to be seen in the next 2 to 3 days and follow-up. Prescriptions: cefuroxime axetiL [Cefuroxime] 500 mg PO BID #10 tablet Hydrocodone/Acetaminophen [Hydrocodone-Acetamn 7.5-325/15] 10 ml PO Q8H PRN #120 ml MDD 30 ml PRN Reason: Cough
[2024-09-04] MEDS ORDERED: ROCEPHIN 1 GM / 100 ML NaCl 1 GM/100 ML IVPB IV ONE (06:44)
[2024-09-04] MEDS: solu-MEDROL 125 MG, Sterile H2O 10 ml 2 ML IV ONE ×2 (06:45→06:51)
[2024-09-04] MEDS: ROCEPHIN 1 GM / 100 ML NaCl 1 GM/100 ML IVPB IV STA (06:45)
[2024-09-04] MEDS: ROCEPHIN 1 GM / 100 ML NaCl 1 GM/100 ML IVPB IV ONE (06:52)
[2024-09-04] MEDS: solu-MEDROL 125 MG, Sterile H2O 10 ml 2 ML IM ONE (07:01)
[2024-09-04] MEDS: Rocephin 1000 MG INJ IM ONE (07:01)
[2024-09-04 07:02] VITALS: RESP 16
[2024-09-04 07:41] VITALS: BP 128/92; PULSE 72; O2SAT 97
--- NOTE | 2024-09-04 08:42 | XRAY ---
Indication: Cough. Comparison: May 04, 2022 Portable chest now demonstrate subtle right infrahilar infiltrate versus atelectasis. Remaining heart, left lung, and bony thorax normal.
== END 2024-09-04 07:41 | disposition home or self-care (01) ==
LOC: ED 05:53
DX: R91.8 Other nonspecific abnormal finding of lung field (principal); R05.1 Acute cough; R50.9 Fever, unspecified; J02.9 Acute pharyngitis, unspecified; M79.10 Myalgia, unspecified site; Z79.52 Long term (current) use of systemic steroids; Z79.891 Long term (current) use of opiate analgesic; Z79.899 Other long term (current) drug therapy; Z72.0 Tobacco use
CPT/HCPCS: 71045; 93005; 94640; 96374; 96375; 99284; J0696; J2919; A9270-GY